=== PATIENT | female | born 1995 | race Caucasian/White ===

== ENCOUNTER 2017-02-15 01:34 | Emergency (ER) | payer OTHER ==
[~2017-02-15] VITALS: Ht 167.6 cm; Wt 113.0 kg
[2017-02-15] MEDS ORDERED: ONDANSETRON 4MG ODT PO STA (05:50)
[2017-02-15] MEDS ORDERED: FAMOTIDINE 20MG/2ML VIAL IV STA (05:50)
[2017-02-15] MEDS ORDERED: SODIUM CHLORIDE 0.9% 1,000 ML IV ONE ×2 (05:50)
[2017-02-15] MEDS ORDERED: KETOROLAC 30MG/ML VIAL IV STA (05:50)
[2017-02-15 06:07] LABS: BASOPHILS % 0.5 % (0.0-2.0); CLARITY URINE CLOUDY (CLEAR); COLOR URINE YELLOW (YELLOW); EOSINOPHILS % 0.1 % (0.0-5.0); GLUCOSE URINE NEGATIVE (NEGATIVE); HEMATOCRIT. 39.6 % (36.0-48.0); HEMOGLOBIN. 13.6 g/dL (12.0-16.0); KETONES URINE 3+ (NEGATIVE); LEUKOCYTE ESTERASE URINE 1+ (NEGATIVE); LYMPHOCYTES % 16.8 % (20.0-50.0); MEAN CORPUSCULAR HEMOGLOBIN 29.8 pg (28.0-32.0); MEAN PLATELET VOLUME 9.3 fl (7.4-10.4); MONOCYTES % 5.3 % (2.0-8.0); NEUTROPHILS % 77.3 % (40.0-76.0); NITRITE URINE NEGATIVE (NEGATIVE); OCCULT BLOOD URINE NEGATIVE (NEGATIVE); PH URINE 5.5 (4.5-8.0); PLATELET 482 x1000/uL (130-400); PROTEIN URINE NEGATIVE (NEGATIVE); RED BLOOD CELL COUNT 4.55 mill/uL (4.2-5.4); RED CELL DISTRIBUTION WIDTH 12.6 % (11.6-14.6); SPECIFIC GRAVITY URINE 1.031 (1.005-1.030)
[2017-02-15 06:08] LABS: CHLORIDE 105 mEq/L (98-107)
[2017-02-15 06:09] LABS: PROTHROMBIN TIME 10.8 sec (9.4-11.6)
[2017-02-15 06:17] LABS: CARBON DIOXIDE 26 mEq/L (21-32)
[2017-02-15 06:43] VITALS: BP 110/75
[2017-02-15] MEDS ORDERED: ONDANSETRON 4MG ODT PO ONE (08:00)
== END 2017-02-15 08:35 | disposition home or self-care (01) ==
LOC: ER 01:34
DX: N39.0 Urinary tract infection, site not specified (principal); J45.909 Unspecified asthma, uncomplicated
CPT/HCPCS: 36415; 80053; 81001; 81025; 83690; 85025; 85610; 96361; 96374; 96375; 99285; J1885; J3490; J7030; Q0162; Z7610